=== PATIENT | male | born 1960 | race Caucasian/White ===

== ENCOUNTER 2024-11-11 11:06 | Emergency (ER) | payer SELFPAY ==
[~2024-11-11] VITALS: Ht 170.2 cm; Wt 81.6 kg
--- NOTE | 2024-11-11 11:23 | ERN ---
ED Note History of Present Illness Stated Complaint: INSECT BITE Chief Complaint: Insect Bite Time Seen by MD: 11:09 Time Seen by Midlevel: 11:09 Dictation: The patient is a 64-year-old male with no past medical history who presents to the emergency department with complaints of left lower arm abscess onset a week ago after being bitten by an unknown insect. Patient reports he went to the urgent care and was prescribed antibiotics which she started taking on Wednesday but reports that is symptoms have gotten worse. Patient denies any fevers Allergies: Coded Allergies: No Known Drug Allergies (Unverified Allergy, Unknown, 11/11/24) Home Meds Active Scripts Sulfamethoxazole/Trimethoprim (Bactrim Ds Tablet) 800 Mg-160 Mg Tablet, 1 TAB PO BID for 10 Days, #20 TAB 0 Refills Prov:MERLIN DUMONT ANDREW 11/11/24 Past Medical History Past Medical History: No Pertinent History Surgical History: None RN Note Reviewed/Agreed w/PFSH: Yes Review of System Dictation Constitutional: Negative for fever,chills, and weight loss Eyes: Negative for injury, pain,redness, and discharge ENT: Negative for injury,pain or swelling Cardiovascular: Negative for chest pain, palpitations, and edema Respiratory: Negative for shortness of breath, cough, and wheezing, Abdomen/GI: Negative for abdominal pain, nausea, vomiting, diarrhea, and constipation Back: Negative for injury and pain : Negative for injury, bleeding and discharge MS/Extremity: Negative for injury and deformity Skin: Negative for rash, and discoloration positive for left lower arm abscess Neuro: Negative for headache, weakness, numbness, tingling, and seizure Psych: Negative for suicide ideation, homicidal ideation, and hallucinations Initial Vital Sign VS Vital Signs Date Time Temp Pulse Resp B/P (MAP) Pulse Ox O2 Delivery O2 Flow Rate FiO2 11/11/24 11:08 98.8 61 18 148/74 5 11/11/24 11:19 Room Air* 0 21 Physical Exam Dictation Vital Signs reviewed General Appearance: Alert, oriented x 3, no acute distress, well developed, nourished. Head and Face: non-traumatic. Eyes: PERRL, pink conjunctivas, eyelid no trauma, anterior chamber with arcus senilis. Ears: Pinnas intact and no signs of trauma or erythema ear canals clear and no discharge TM no erythema Nose: No discharge, no bleeding. Oropharynx: Mouth normal, tongue pink. pharynx clear,no erythema, tonsils no exudates, no abscesses noted, mucous membrane moist Neck: Supple, non-tender, no thyromegaly, no masses, no JVD, no bruits Breast:Deferred Chest:No tenderness, no crepitus, no paradoxical movement, no retractions Lungs:Clear, well-ventilated, symmetric, no rales, no wheezing, no rhonchi, no stridor, good breath sounds bilaterally Heart: Regular rate, regular rhythm, no murmur, no gallops Vascular: no peripheral edema, Abdomen: Soft, positive bowel sounds, nondistended, no guarding, nontender, no rebound, no masses no hepatomegaly, no splenomegaly, no Hughes's sign, no hernias. Rectal: Deferred Genital: Deferred Neurological: Normal speech, motor function intact, sensory function intact Musculoskeletal: Neck nontender, full range of motion, back nontender, full range of motion, Extremities: nontender, full range of motion Skin: Color pink, dry, no turgor, no rash, no lacerations, no abrasions, no contusions. Purulent drainage and erythema noted to mid arm, induration 4 cm in diameter Lymphatic: Deferred Results (Laboratory/Radiology) Laboratory/Radiology Laboratory Tests Test 11/11/24 11:32 White Blood Count 9.2 K/uL (4.8-10.8) Red Blood Count 4.56 MIL/uL (4.50-6.20) Hemoglobin 14.7 g/dL (14.0-18.0) Hematocrit 43.1 % (42-54) Mean Corpuscular Volume 94.5 fL (79-99) Mean Corpuscular Hemoglobin 32.2 pg (27.0-33.0) Mean Corpuscular Hemoglobin Concent 34.1 g/dL (32.0-36.0) Red Cell Distribution Width 12.6 % (11.0-15.5) Platelet Count 214 K/uL (130-400) Mean Platelet Volume 9.5 fL (7.5-10.5) Immature Granulocyte % (Auto) 0.3 % (0-1) Neutrophils (%) (Auto) 71.6 % (40.0-77.0) Lymphocytes (%) (Auto) 14.9 % (21.0-51.0) L Monocytes (%) (Auto) 9.6 % (3.0-13.0) Eosinophils (%) (Auto) 3.0 % (0.0-8.0) Basophils (%) (Auto) 0.6 % (0.0-5.0) Neutrophils # (Auto) 6.6 K/uL (1.8-7.7) Lymphocytes # (Auto) 1.4 K/uL (1.0-4.8) Monocytes # (Auto) 0.9 K/uL (0.1-1.0) Eosinophils # (Auto) 0.28 K/uL (0.00-0.70) Basophils # (Auto) 0.06 K/uL (0.00-0.20) Absolute Immature Granulocyte (auto 0.03 K/uL (0-1) Nucleated Red Blood Cells 0.0 % (0.0-0.19) Sodium Level 135 mmol/L (136-145) L Potassium Level 4.0 mmol/L (3.5-5.1) Chloride Level 101 mmol/L (101-111) Carbon Dioxide Level 30 mmol/L (21-32) Blood Urea Nitrogen 15 mg/dL (7-18) Creatinine 1.0 mg/dL (0.5-1.3) Glomerular Filtration Rate Calc 85 mL/min (>90) Random Glucose 96 mg/dL (70-105) Total Calcium 8.6 mg/dL (8.5-10.1) Labs Reviewed?: Yes ED Course ED Course Orders Procedure Category Date Status Time Cbc With Differential LAB 11/11/24 Complete 11:20 Basic Metabolic Panel LAB 11/11/24 Complete 11:20 Anaerobic Culture VENUS 11/11/24 In Process 11:20 Aerobic Culture VENUS 11/11/24 In Process 11:20 Lidocaine Hcl 1% 20ml PHA 11/11/24 Complete Vial (Lidocaine Hc 12:00 Tetanus,Diphtheria PHA 11/11/24 Complete Tox [Adult] (Diphther 12:00 I&D Set Up Bedside CPOE 11/11/24 Transmitted (Er) 11:38 Current Medications Medications (Trade) Dose Ordered Sig/Kendell Route PRN Reason Start Time Stop Time Status Last Admin Dose Admin Lidocaine HCl (Lidocaine HCl 1% 20ml Vial) 10 ml ONCE ONCE INJ 11/11/24 12:00 11/11/24 12:01 DC 11/11/24 11:58 Tetanus/ Diphtheria Toxoids Adsorbed (DiphthERIA-teTANUS TOXOID [ADULT]/ DECAVAC) 0.5 ml ONCE ONCE IM 11/11/24 12:00 11/11/24 12:01 DC 11/11/24 11:59 Vital Signs Date Time Temp Pulse Resp B/P (MAP) Pulse Ox O2 Delivery O2 Flow Rate FiO2 11/11/24 12:34 98.8 65 18 137/70 5 Room Air* 0 21 11/11/24 11:19 98.8 61 18 148/74 98 Room Air* 0 21 11/11/24 11:08 98.8 61 18 148/74 5 Medical Decision Making MDM The patient is a 64-year-old male with no past medical history who presents to the emergency department with complaints of left lower arm abscess onset a week ago after being bitten by an unknown insect. Patient reports he went to the urgent care and was prescribed antibiotics which she started taking on Wednesday but reports that is symptoms have gotten worse. Patient denies any fevers CBC showed no leukocytosis, no anemia, chemistry showed mild hyponatremia, normal renal function. Abscess was drained she tolerated procedure well. Patient will be started on Bactrim and instructed to follow up with PCP. On physical exam patient is in no acute distress, nontoxic appearance, stable vital signs, not febrile, not tachycardic Differential diagnosis: Cellulitis, abscess, sepsis Need for hospitalization: Patient does not meet criteria for hospitalization. There are no social concerns with this patient. Procedure Procedure Dictation: Verbal consent for the procedure was obtained. A time-out protocol was performed prior to initiating the procedure. The area was prepared and draped in the usual, sterile manner. The site was anesthetized with 1% lidocaine without epinephrine. 2 linear 1.5 cm incision along the local skin lines was made and the purulent material expressed. The abscess was explored thoroughly and sequestered pockets were opened. Bleeding was minimal. Packin/ in idoforne 5cm The patient tolerated the procedure well without complications. Standard post- procedure care is explained and return precautions are given. Blade Size: 11 I & D Procedure: no betadine prepno sterile drapes appliedno sterile dr essing applied DX & DISP Disposition: Discharge Departure Impression: Primary Impression: Abscess of left arm Condition: Stable Scripts Sulfamethoxazole/Trimethoprim (Bactrim Ds Tablet) 800 Mg-160 Mg Tablet 1 TAB PO BID for 10 Days, #20 TAB 0 Refills Prov: MERLIN DUMONT 11/11/24 Additional Instructions: Please follow up with your PCP in 1-2 days. Take your antibiotics as prescribed and until finished. Change your dressing daily or sooner if needed. If you develop fever, your swelling increases or symptoms worsen please return to ER. FOLLOW-UP WITH PRIMARY CARE PROVIDER IN 1 TO 2 DAYS. TAKE MEDICATIONS DIRECTED HERE IN THE EMERGENCY ROOM. OKAY TO CONTINUE HOME MEDICATIONS UNLESS OTHERWISE DISCUSSED DURING YOUR VISIT IN THE EMERGENCY ROOM TODAY. RETURN TO YOUR NEAREST EMERGENCY ROOM IF SYMPTOMS WORSEN OR IF THERE IS NO IMPROVEMENT. C ALL 911 IF YOU NEED IMMEDIATE ASSISTANCE. TAKE TYLENOL [id number] NEEDED AND IF NO CONTRAINDICATIONS ARE PRESENT. INCREASE ORAL HYDRATION. A WOUND CULTURE OR URINE CULTURE WAS ORDERED HERE IN THE EMERGENCY ROOM DEPARTMENT PLEASE FOLLOW-UP WITH PRIMARY CARE PROVIDER AND ADVISE THEM TO GET REPEAT PORTS FROM OUR FACILITY. IF YOU HAD ANY ANNA WRAP/SPLINTS THAT WERE APPLIED HERE, PLEASE DO NOT REMOVE THEM UNTIL YOU SEE YOUR PRIMARY CARE OR SPECIALTY. Referrals: SELF,REFERRAL (PCP) Time of Disposition: 12:36 I have examined patient, & reviewed all documents, & agreed W/ the Diagnosis, and Plan MERLIN DUMONT Nov 11, 2024 11:23
[2024-11-11 11:37] LABS: IMMATURE GRANULOCYTE ABSOLUTE 0.03 K/uL (0-1); NUCLEATED RED BLOOD CELLS 0.0 % (0.0-0.19); PLATELET COUNT (AUTO) 214 K/uL (130-400); RED BLOOD CELL COUNT(AUTO) 4.56 MIL/uL (4.50-6.20); RED CELL DISTRIBUTION WIDTH 12.6 % (11.0-15.5); WHITE BLOOD COUNT (AUTO) 9.2 K/uL (4.8-10.8)
[2024-11-11 11:47] LABS: CREATININE 1.0 mg/dL (0.5-1.3); GLOMERULAR FILTR. RATE CALC 85.0 mL/min (>90); GLUCOSE,RANDOM 96.0 mg/dL (70-105); SODIUM SERUM 135.0 mmol/L (136-145); UREA NITROGEN, BLOOD 15.0 mg/dL (7-18)
[2024-11-11] MEDS: LIDOCAINE HCL 1% 20 ML VIAL INJ ONE (11:58)
[2024-11-11 12:34] VITALS: BP 137/70; PULSE 65; RESP 18; TEMP 98.8; O2SAT 5
[2024-11-11] MEDS ORDERED: SULF1TAB42 PO (12:37)
== END 2024-11-11 12:38 | disposition home or self-care (01) ==
LOC: EDH 11:06
DX: L02.414 Cutaneous abscess of left upper limb (principal); W57.XXXA Bitten or stung by nonvenomous insect and other nonvenomous arthropods, initial encounter
CPT/HCPCS: 10060; 36415; 80048; 85025; 87070; 87076; 90471; 90714; 99283

== ENCOUNTER 2024-11-13 07:36 | Emergency (ER) | payer SELFPAY ==
[~2024-11-13] VITALS: Ht 170.2 cm; Wt 72.6 kg
[~2024-11-13 07:36] MED LIST: SULF1TAB42 PO
--- NOTE | 2024-11-13 08:38 | ERN ---
General Chief Complaint: Wound Recheck/Suture Removal Stated Complaint: LEFT ARM ABSCESS F/U Time Seen by MD: 08:03 Source: patient History of Present Illness Initial Comments This patient is a 64-year-old gentleman who presented with left lower arm ab scess. Patient was seen in the ED 2 days ago for similar complaint and underwent incision and drainage with antibiotic administration. Patient still has a draining abscess which is warm and tender to touch. Patient denied any complaints of fever or chills. His symptoms began a week ago after being bitten by an unknown insect. They gradually progressed to form a blister which started draining eventually. Timing/Duration: 1 week Severity: moderate Allergies: Coded Allergies: No Known Drug Allergies (Unverified Allergy, Unknown, 11/11/24) Home Meds Active Scripts Amoxicillin/Potassium Clav (Amox Tr-K Clv 875-125 mg Tab) 875 Mg-125 Mg Tablet, 1 TAB PO BID for 10 Days, #20 TAB 0 Refills Prov:IRAIDA NAYLOR MD 11/13/24 Naproxen (Naproxen) 250 Mg Tablet, 1 TAB PO BID for pain for 15 Days, #30 TAB 0 Refills Prov:IRAIDA NAYLOR MD 11/13/24 Sulfamethoxazole/Trimethoprim (Bactrim Ds Tablet) 800 Mg-160 Mg Tablet, 1 TAB PO BID for 10 Days, #20 TAB 0 Refills Prov:MERLIN DUMONT 11/11/24 Past Medical History Past Medical History: No Pertinent History Past Surgical History: None Constitutional: (-) chills, (-) diaphoresis, (-) fever, (-) malaise, (-) weakness, (-) other documentation EENTM: (-) eye pain, (-) blurred vision, (-) tearing, (-) double vision, (-) ear pain, (-) ear discharge, (-) nose pain, (-) nose congestion, (-) throat pain, (-) Throat swelling, (-) mouth pain, (-) tooth pain, (-) mouth swelling, (-) other documentation Respiratory: (-) cough, (-) orthopnea, (-) short of breath, (-) stridor, (-) wheezing, (-) other documentation Cardiovascular: (-) chest pain, (-) edema, (-) palpitations, (-) syncope, (-) dyspnea on exertion, (-) other documentation Gastrointestinal/Abdominal: (-) nausea, (-) vomiting, (-) diarrhea, (-) abdominal pain, (-) abdominal distention, (-) constipation, (-) rectal bleeding, (-) dark stool/melena, (-) other documentation Genitourinary: (-) penile discharge, (-) dysuria, (-) frequency, (-) hematuria, (-) pain, (-) other documentation Skin: (+) abscess Neuro: (-) altered mental status, (-) headache, (-) syncope, (-) paralysis, (-) numbness, (-) seizure, (-) pre-existing deficit, (-) tremors, (-) weakness, (-) dizziness, (-) slurred speech, (-) vertigo, (-) other documentation Physical Exam General Appearance: (+) moderate distress Orientation: (+) alert, (+) oriented x 3 Ear, Nose, Throat: (+) hearing grossly normal, (+) normal ENT inspection, (+) moist mucous membraine, (+) normal pharynx Neck: (+) normal inspection, (+) supple, (+) full range of motion Respiratory: (+) chest non-tender, (+) lungs clear Heart: (+) regular Gastrointestinal: (+) soft, (+) non-tender Extremities: (+) swelling (Draining abscess with associated warmth.) Neurologic/Psychiatric: (+) normal speech, (+) no motor defecits, (+) no sensory deficits MDM This patient is a 64-year-old gentleman who presented with left lower arm abscess. Patient was seen in the ED 2 days ago for similar complaint and underwent incision and drainage with antibiotic administration. Patient still has a draining abscess which is warm and tender to touch. Patient denied any complaints of fever or chills. His symptoms began a week ago after being bitten by an unknown insect. They gradually progressed to form a blister which started draining eventually. He underwent incision and drainage of his abscess in the ED. Abscess was drained with normal saline. He will be discharged with amoxicillin clavulanate. He will also receive naproxen for his pain management. Procedure I & D Procedure Verbal consent for the procedure was obtained. A time-out protocol was performed prior to initiating the procedure. The area was prepared and draped in the usual, sterile manner. The site was anesthetized with 1% lidocaine without epinephrine. 2 linear 1.5 cm incision along the local skin lines was made and the purulent material expressed. The abscess was explored thoroughly and sequestered pockets were opened. Bleeding was minimal. The patient tolerated the procedure well without complications. Standard post- procedure care is explained and return precautions are given. Total sign 5 minutes ED Course Orders Procedure Category Date Status Time Lidocaine Hcl 1% 20ml PHA 11/13/24 Complete Vial (Lidocaine Hc 08:30 Current Medications Medications (Trade) Dose Ordered Sig/Kendell Route PRN Reason Start Time Stop Time Status Last Admin Dose Admin Lidocaine HCl (Lidocaine HCl 1% 20ml Vial) 10 ml ONCE ONCE INJ 11/13/24 08:30 11/13/24 08:31 DC 11/13/24 10:19 Vital Signs Date Time Temp Pulse Resp B/P (MAP) Pulse Ox O2 Delivery O2 Flow Rate FiO2 11/13/24 10:16 97.9 62 16 131/87 96 Room Air* 0 21 11/13/24 07:43 97.5 56 16 139/92 96 Room Air* 0 21 11/13/24 07:38 97.5 56 16 139/92 96 Room Air 0 DX & DISP Disposition: Discharge Departure Impression: Primary Impression: Abscess of left arm Condition: Stable Scripts Amoxicillin/Potassium Clav (Amox Tr-K Clv 875-125 mg Tab) 875 Mg-125 Mg Tablet 1 TAB PO BID for 10 Days, #20 TAB 0 Refills Prov: IRAIDA NAYLOR MD 11/13/24 Naproxen (Naproxen) 250 Mg Tablet 1 TAB PO BID for pain for 15 Days, #30 TAB 0 Refills Prov: IRAIDA NAYLOR MD 11/13/24 Additional Instructions: Your abscess has been drained. Wound has been kept open and covered with sterile dressing. Keep it clean. It needs to be re-evaluated within 72 hours. Go to your primary care physician for re-evaluation. If you do not have a PCP, visit the nearest ER. Take amoxicillin and clavulanate twice a day for next 10 days. You have also been given naproxen for pain. Referrals: SELF,REFERRAL (PCP) Time of Disposition: 10:13 I have examined patient, & reviewed all documents, & agreed W/ the Diagnosis, and Plan ATTESTATION BY PHYSICIAN I have seen and examined the patient. I reviewed the documentation, medical decision making, and treatment plan as noted by the resident provider above. I agree with the findings and plan of care. KEYLA DOE MUHAMMAD H MD Nov 13, 2024 08:38 KEYLA DOE DO Nov 13, 2024 15:25
[2024-11-13] MEDS ORDERED: NAPR-1196 PO (10:09)
[2024-11-13] MEDS ORDERED: AMOX1TAB16 PO (10:09)
[2024-11-13 10:16] VITALS: BP 131/87; PULSE 62; RESP 16; TEMP 97.8; O2SAT 96
[2024-11-13] MEDS: LIDOCAINE HCL 1% 20 ML VIAL INJ ONE (10:19)
== END 2024-11-13 10:26 | disposition home or self-care (01) ==
LOC: EDH 07:36
DX: L02.414 Cutaneous abscess of left upper limb (principal)
CPT/HCPCS: 10060; 99283

== ENCOUNTER 2024-11-16 07:52 | Emergency (ER) | payer SELFPAY ==
[~2024-11-16] VITALS: Ht 170.2 cm; Wt 72.6 kg
[2024-11-16 07:52] VITALS: BP 143/85; PULSE 64; RESP 16; TEMP 97.8
--- NOTE | 2024-11-16 08:38 | ERN ---
General Chief Complaint: Wound Check Stated Complaint: WOUND CHECK Time Seen by MD: 08:11 Source: patient History of Present Illness Initial Comments This patient is a 64-year-old gentleman who presented for wound check up. He was seen in the ED several days ago after being bitten by an unknown insect. The abscess on the left arm has improved relatively compared to prior visit with decreased warmth and swelling. Patient denies fever or chills. Associated Symptoms: denies symptoms Allergies: Coded Allergies: No Known Drug Allergies (Unverified Allergy, Unknown, 11/11/24) Home Meds Active Scripts Amoxicillin/Potassium Clav (Amox Tr-K Clv 875-125 mg Tab) 875 Mg-125 Mg Tablet, 1 TAB PO BID for 10 Days, #20 TAB 0 Refills Prov:IRIADA NAYLOR MD 11/13/24 Naproxen (Naproxen) 250 Mg Tablet, 1 TAB PO BID for pain for 15 Days, #30 TAB 0 Refills Prov:IRAIDA NAYLOR MD 11/13/24 Sulfamethoxazole/Trimethoprim (Bactrim Ds Tablet) 800 Mg-160 Mg Tablet, 1 TAB PO BID for 10 Days, #20 TAB 0 Refills Prov:MERLIN DUMONT 11/11/24 Past Medical History Past Medical History: No Pertinent History Past Surgical History: None Constitutional: (-) chills, (-) diaphoresis, (-) fever, (-) malaise, (-) weakness, (-) other documentation EENTM: (-) eye pain, (-) blurred vision, (-) tearing, (-) double vision, (-) ear pain, (-) ear discharge, (-) nose pain, (-) nose congestion, (-) throat pain, (-) Throat swelling, (-) mouth pain, (-) tooth pain, (-) mouth swelling, (-) other documentation Respiratory: (-) cough, (-) orthopnea, (-) short of breath, (-) stridor, (-) wheezing, (-) other documentation Cardiovascular: (-) chest pain, (-) edema, (-) palpitations, (-) syncope, (-) dyspnea on exertion, (-) other documentation Gastrointestinal/Abdominal: (-) nausea, (-) vomiting, (-) diarrhea, (-) abdominal pain, (-) abdominal distention, (-) constipation, (-) rectal bleeding, (-) dark stool/melena, (-) other documentation Genitourinary: (-) penile discharge, (-) dysuria, (-) frequency, (-) hematuria, (-) pain, (-) other documentation Skin: (+) abscess (On left arm below the elbow joint) Neuro: (-) altered mental status, (-) headache, (-) syncope, (-) paralysis, (-) numbness, (-) seizure, (-) pre-existing deficit, (-) tremors, (-) weakness, (-) dizziness, (-) slurred speech, (-) vertigo, (-) other documentation Psych: (-) depression, (-) suicidal ideation, (-) anxiety, (-) emotional p roblems, (-) auditory hallucinations, (-) visual hallucinations Physical Exam General Appearance: (+) no apparent distress Orientation: (+) alert, (+) oriented x 3 Ear, Nose, Throat: (+) hearing grossly normal, (+) normal ENT inspection, (+) moist mucous membraine Neck: (+) normal inspection, (+) supple, (+) full range of motion Respiratory: (+) chest non-tender, (+) lungs clear, (+) well ventilated Heart: (+) regular Gastrointestinal: (+) soft, (+) non-tender Extremities: (+) normal range of motion, (+) swelling (On left upper extremity below the elbow joint with draining abscess) Neurologic/Psychiatric: (+) normal speech, (+) no motor defecits, (+) no sensory deficits MDM This patient is a 64-year-old gentleman who presented for wound check up. He was seen in the ED several days ago after being bitten by an unknown insect. The abscess on the left arm has improved relatively compared to prior visit with decreased warmth and swelling. Patient denies fever or chills. Procedure: Surrounding Skin was cleansed with the application of povidone. With normal saline and gauze, open abscess was irrigated and drained thoroughly. ED Course Vital Signs Date Time Temp Pulse Resp B/P (MAP) Pulse Ox O2 Delivery O2 Flow Rate FiO2 11/16/24 07:52 97.9 64 16 143/85 98 Room Air DX & DISP Disposition: Discharge Departure Impression: Primary Impression: Abscess of left arm Condition: Stable Additional Instructions: Your abscess has been drained. Wound has been kept open and covered with sterile dressing. Keep it clean. It needs to be re-evaluated within 72 hours. Go to your primary care physician for re-evaluation. If you do not have a PCP, visit the nearest ER. Continue amoxicillin clavulanate for infection as well as naproxen for pain. Referrals: SELF,REFERRAL (PCP) Time of Disposition: 08:49 I have examined patient, & reviewed all documents, & agreed W/ the Diagnosis, and Plan ATTESTATION BY PHYSICIAN I have seen and examined the patient. I reviewed the documentation, medical decision making, and treatment plan as noted by the resident provider above. I agree with the findings and plan of care. KEYLA DOE MUHAMMAD H MD Nov 16, 2024 08:38 KEYLA DOE DO Nov 16, 2024 09:06
--- NOTE | 2024-11-16 09:10 | NUR ---
LEFT FOREARM WRAPPED DRESSED WITH STERILE 4X4
== END 2024-11-16 09:13 | disposition home or self-care (01) ==
LOC: EDH 07:52
DX: L02.414 Cutaneous abscess of left upper limb (principal)
CPT/HCPCS: 99282

== ENCOUNTER 2024-11-19 07:37 | Emergency (ER) | payer SELFPAY ==
[~2024-11-19] VITALS: Ht 170.2 cm; Wt 72.6 kg
[~2024-11-19 07:37] MED LIST changes: +AMOX1TAB16 PO; +NAPR-1196 PO
[2024-11-19 08:13] VITALS: BP 144/68; PULSE 54; RESP 16; TEMP 98.7; O2SAT 98
--- NOTE | 2024-11-19 08:14 | ERN ---
General Chief Complaint: Wound Check Stated Complaint: LEFT ARM WOUND CHECK Time Seen by MD: 08:01 Source: patient History of Present Illness Initial Comments Patient is a 64-year-old male coming in complaining of left forearm wound. Per patient this is the 3rd visit in his here for further evaluation of a left forearm abscess which was I and D twice. He has been taking care of it and states that he does not have any drainage anymore. Allergies: Coded Allergies: No Known Drug Allergies (Unverified Allergy, Unknown, 11/11/24) Home Meds Active Scripts Amoxicillin/Potassium Clav (Amox Tr-K Clv 875-125 mg Tab) 875 Mg-125 Mg Tablet, 1 TAB PO BID for 10 Days, #20 TAB 0 Refills Prov:IRAIDA NAYLOR MD 11/13/24 Naproxen (Naproxen) 250 Mg Tablet, 1 TAB PO BID for pain for 15 Days, #30 TAB 0 Refills Prov:IRADIA NAYLOR MD 11/13/24 Sulfamethoxazole/Trimethoprim (Bactrim Ds Tablet) 800 Mg-160 Mg Tablet, 1 TAB PO BID for 10 Days, #20 TAB 0 Refills Prov:MERLIN DUMONT 11/11/24 Past Medical History Past Medical History: No Pertinent History Past Surgical History: Other Surgical History Other: BLE SKIN GRAFTS ROS Dictation CONSTITUTIONAL: No chills, no fever, no weakness, no diaphoresis, no malaise. HEAD/FACE: No signs of trauma. EENT: No eye pain, no blurred vision, no tearing, no double vision, no ear pain, no ear discharge, no nose pain, no nasal congestion, no throat pain, no throat swelling, no mouth pain. RESPIRATORY: No cough, no orthopnea, no SOB, no stridor, no wheezing. CARDIOVASCULAR: No chest pain, no edema, no palpitations, no syncope. GASTROINTESTINAL/ABDOMINAL: No abdominal pain, no constipation, no diarrhea, no nausea, no vomiting. GENITOURINARY: No abnormal discharge, no dysuria, no frequent urination, no hematuria. No complaints of pain in the genitals. MUSCULOSKELETAL: No back pain, no gout, no joint pain, no joint swelling, no muscle pain, no muscle stiffness, no neck pain. INTEGUMENTARY: No change in color, no change in hair/nails, no dryness, lesion, no lumps, no rash. NEUROLOGICAL/PSYCH: No anxiety, not depressed, no emotional problem, no headache, no numbness, no pre-existing deficit, no history of seizures, no tremors, no weakness. HEMATOLOGIC/LYMPHATIC: Not anemic, no history of blood clots, no apparent bleeding, no bruising, glands not swollen. All Systems Negative, Except as Noted. Physical Exam Physical Exam Dictation VITAL SIGNS: Reviewed. GENERAL APPEARANCE: Alert, oriented x3, no acute distress, obese. HEAD AND FACE: Non-traumatic. EYES: PERRL, pink conjunctivas, eyelid no trauma, anterior chamber clear. EARS: Pinnas intact and no signs of trauma or erythema. Ear canals clear and no discharge. TMs no erythema. NOSE: No discharge, no bleeding. OROPHARYNX: Mouth normal, teeth no caries, tongue pink. Pharynx clear, no erythema. Tonsils no exudates, no abscesses noted. Mucous membrane moist. NECK: Supple, non-tender, no thyromegaly, no masses, no JVD, no bruits. BREAST: Deferred. CHEST: No tenderness, no crepitus, no paradoxical movement, no retractions. LUNGS: Clear, well-ventilated, symmetric, no rales, no wheezing, no rhonchi, no stridor, good breath sounds bilaterally. HEART: Regular rate, regular rhythm, no murmur, no gallops. VASCULAR: No peripheral edema. ABDOMEN: Soft, positive bowel sounds, nondistended, no guarding, nontender, no rebound, no masses no hepatomegaly, no splenomegaly, no Hughes's sign, no hernias. RECTAL: Deferred. GENITAL: Deferred. NEUROLOGICAL: Normal speech, gross motor function intact, gross sensory function intact. MUSCULOSKELETAL: Neck nontender, full range of motion, back nontender, full range of motion. EXTREMITIES: Nontender, full range of motion. SKIN: Color pink, dry, no turgor, no rash, no lacerations, no abrasions, left forearm wound LYMPHATICS: Deferred. Results Laboratory and Microbiology Labs Reviewed?: Yes MDM MDM: Differential diagnosis: Wound evaluation, post I and D, Rationale: Tests considered and ordered secondary to shared decision making include: Previous outside records reviewed: Old ER visits. Risk of complication and/or morbidity or mortality of patient management: None Medications-Per medication reconciliation Need for hospitalization: Patient does not meet criteria for hospitalization. Need for emergency major/minor surgery: No Patient is a 64-year-old male coming in to be evaluated for left forearm wound. Wound was cleaned swabbed covered with a breathable gauze. Patient will be discharged in stable condition with a diagnosis of wound evaluation. Patient is currently taking antibiotics advised him to continue taking him and follow up with PCP accordingly. ED Course Vital Signs Date Time Temp Pulse Resp B/P (MAP) Pulse Ox O2 Delivery O2 Flow Rate FiO2 11/19/24 07:45 98.8 56 18 147/76 99 Room Air DX & DISP Disposition: Discharge Departure Impression: Primary Impression: Encounter for evaluation of wound Condition: Stable Additional Instructions: FOLLOW-UP WITH PRIMARY CARE PROVIDER IN 1 TO 2 DAYS. TAKE MEDICATIONS DIRECTED HERE IN THE EMERGENCY ROOM. OKAY TO CONTINUE HOME MEDICATIONS UNLESS OTHERWISE DISCUSSED DURING YOUR VISIT IN THE EMERGENCY ROOM TODAY. RETURN TO YOUR NEAREST EMERGENCY ROOM IF SYMPTOMS WORSEN OR IF THERE IS NO IMPROVEMENT. CALL 911 IF YOU NEED IMMEDIATE ASSISTANCE. TAKE TYLENOL [id number] NEEDED AND IF NO CONTRAINDICATIONS ARE PRESENT. INCREASE ORAL HYDRATION. A WOUND CULTURE OR URINE CULTURE WAS ORDERED HERE IN THE EMERGENCY ROOM DEPARTMENT PLEASE FOLLOW-UP WITH PRIMARY CARE PROVIDER AND ADVISE THEM TO GET REPORTS FROM OUR FACILITY. IF YOU HAD ANY ANNA WRAP/SPLINTS THAT WERE APPLIED HERE, PLEASE DO NOT REMOVE THEM UNTIL YOU SEE YOUR PRIMARY CARE OR SPECIALTY. Referrals: Referrals: SELF,REFERRAL (PCP) TAD DECKER MD Time of Disposition: 08:14 CHELLE MATHIS MD Nov 19, 2024 08:14
--- NOTE | 2024-11-19 08:21 | NUR ---
WOUND CARE DONE BY TERESSA LEVINE AT BEDSIDE.
--- NOTE | 2024-11-19 08:21 | NUR ---
PT GIVEN INSTRUCTION FOR HOME WILL SEE PCP FOR FURTHER EVALUATION IN 2-3 DAY, DRESSING CHANGED BY TERESSA LEVINE. PT STABLE, VITALS WNL NO C/O PAIN NOW. PT DROVE HIM SELF HOME.
== END 2024-11-19 08:25 | disposition home or self-care (01) ==
LOC: EDH 07:37
DX: L02.414 Cutaneous abscess of left upper limb (principal); Z79.899 Other long term (current) drug therapy
CPT/HCPCS: 99282